=== PATIENT | male | born 1990 | race African-American/Black ===

== ENCOUNTER 2023-09-08 04:14 | Emergency (ER) | payer BC ==
[~2023-09-08] VITALS: Ht 188 cm; Wt 108.9 kg
[2023-09-08 04:35] VITALS: BP 142/91; TEMP 98.2; O2SAT 98
[2023-09-08] MEDS ORDERED: KETOROLAC TROMETHAMINE INJ 30 MG/ML VIAL ONE (04:42)
[2023-09-08] MEDS: KETOROLAC TROMETHAMINE INJ 30 MG/ML VIAL IV ONE (04:47)
== END 2023-09-08 04:54 | disposition left against medical advice (07) ==
LOC: ER 04:22
DX: R07.9 Chest pain, unspecified (principal); Z88.8 Allergy status to other drugs, medicaments and biological substances
CPT/HCPCS: J1885

== ENCOUNTER 2024-02-23 06:24 | Emergency (ER) | payer BC ==
[~2024-02-23] VITALS: Ht 190.5 cm; Wt 113.4 kg
[2024-02-23] MEDS ORDERED: LIDOCAINE HCL/MPF 1% 30 ML VIAL IJ ONE (06:51)
[2024-02-23] MEDS ORDERED: TERBUTALINE SULFATE 1 MG/ML VIAL ONE (06:53)
[2024-02-23] MEDS ORDERED: KETOROLAC TROMETHAMINE 15 MG/ML VIAL ONE (07:16)
[2024-02-23] MEDS ORDERED: ONDANSETRON HCL/PF 4 MG/2 ML VIAL ONE (07:16)
[2024-02-23] MEDS ORDERED: MORPHINE SULFATE INJ 4 MG/ML DISP.SYRIN ONE (07:16)
[2024-02-23] MEDS: ONDANSETRON HCL/PF 4 MG/2 ML VIAL IV ONE (07:30)
[2024-02-23] MEDS: KETOROLAC TROMETHAMINE 15 MG/ML VIAL IV ONE (07:32)
[2024-02-23] MEDS: MORPHINE SULFATE INJ 2 MG/ML DISP.SYRIN IV ONE (07:35)
[2024-02-23] MEDS: PHENYLEPHRINE IV ONE (07:36)
[2024-02-23] MEDS: NS 0.9% IV ONE (07:36)
[2024-02-23] MEDS: TERBUTALINE SULFATE 1 MG/ML VIAL SQ ONE (07:38)
[2024-02-23] MEDS: LIDOCAINE 1% INJ 50 ML MDV IJ ONE (07:40)
[2024-02-23] MEDS: IV NS 0.9% 1,000 ML BAG IV ONE (07:40)
[2024-02-23 07:56] VITALS: BP 114/70; TEMP 98.7; O2SAT 100
== END 2024-02-23 07:56 | disposition home or self-care (01) ==
LOC: ER 06:29
DX: N48.30 Priapism, unspecified (principal); Z88.8 Allergy status to other drugs, medicaments and biological substances
CPT/HCPCS: 54220; 96361; 96374; 96375; 99284; A4216; J1885; J2270; J2405; J3105; J3490